=== PATIENT | female | born 1990 | race Caucasian/White ===

== ENCOUNTER 2018-01-23 21:10 | Outpatient (CLI) | payer OTHER ==
[2018-01-23] MEDS ORDERED: PRENATAL 19 TA1 EAC1 PO (22:48)
== END 2018-01-24 12:50 | disposition home or self-care (01) ==
LOC: OBS/DEL 21:10
DX: O26.892 Other specified pregnancy related conditions, second trimester (principal); R10.2 Pelvic and perineal pain; Z34.02 Encounter for supervision of normal first pregnancy, second trimester

== ENCOUNTER 2018-04-21 06:03 | Inpatient (IN) | payer OTHER ==
[~2018-04-21] VITALS: Ht 152.4 cm; Wt 62.1 kg
[~2018-04-21 06:03] MED LIST: PRENATAL 19 TA1 EAC1 PO
== END 2018-04-23 12:58 | disposition home or self-care, planned readmission (81) | DRG 775 ==
LOC: LDR 06:03 → OB/GYN 18:04
PROC: 10E0XZZ Delivery of Products of Conception, External Approach (ICD-10-PCS; principal; 2018-04-21)
PROC: 3E033VJ Introduction of Other Hormone into Peripheral Vein, Percutaneous Approach (ICD-10-PCS; 2018-04-21)
PROC: 4A1HXCZ Monitoring of Products of Conception, Cardiac Rate, External Approach (ICD-10-PCS; 2018-04-21)
DX: O80 Encounter for full-term uncomplicated delivery (principal); Z3A.38 38 weeks gestation of pregnancy; Z37.0 Single live birth